=== PATIENT | female | born 1990 | race Two or more races ===

== ENCOUNTER 2018-07-30 12:30 | Emergency (ER) | payer SELFPAY ==
[~2018-07-30] VITALS: Ht 157.5 cm; Wt 62.6 kg
[2018-07-30 12:55] VITALS: BP 118/63
== END 2018-07-30 14:42 | disposition home or self-care (01) ==
LOC: ER 12:30
DX: O23.42 Unspecified infection of urinary tract in pregnancy, second trimester (principal); Z3A.15 15 weeks gestation of pregnancy
CPT/HCPCS: 76805; 81002; 81025

== ENCOUNTER 2018-09-15 20:38 | Observation (INO) | payer MEDICAID ==
[~2018-09-15] VITALS: Ht 157.5 cm; Wt 60.3 kg
[2018-09-15] MEDS ORDERED: PREN-96 PO (22:07)
== END 2018-09-15 23:05 | disposition home or self-care (01) | DRG 566 ==
LOC: LDRP 20:38
PROVIDERS: ADMIT Obstetrics & Gynecology; ATTEND Obstetrics & Gynecology
DX: O00.01 Abdominal pregnancy with intrauterine pregnancy (principal); O26.892 Other specified pregnancy related conditions, second trimester; R19.7 Diarrhea, unspecified; Z3A.21 21 weeks gestation of pregnancy
CPT/HCPCS: 59025; 76815; 81002; G0378